=== PATIENT | male | born 1995 | race Hispanic/Latino ===

== ENCOUNTER → 2017-06-28 | Outpatient (CLI) | payer OTHER ==
--- NOTE | 2017-06-28 15:42 | Diagnostic Imaging Report ---
PROCEDURE:TESTICULAR ULTRASOUND COMPARISON:None. INDICATIONS:TESTICULAR PAIN TECHNIQUE: Gutierrez-scale and color Doppler images of the testicles and scrotal contents were obtained. Duplex imaging with spectral waveform analysis was performed of the testicular arteries and veins. FINDINGS: RIGHT SCROTUM: Testicle: 4.1 x 2.2 x 2.8 cm. Homogeneous echotexture without mass. Normal arterial and venous spectral Doppler waveforms. No increased vascularity. Epididymal head: 1.4 x 0.7 x 0.7 cm. Homogeneous echotexture without mass. No increased vascularity. Hydrocele: None Varicocele: None LEFT SCROTUM: Testicle: 4 x 2 x 2.8 cm. Homogeneous echotexture without mass. Normal arterial and venous spectral Doppler waveforms. No increased vascularity. Epididymal head: 1.3 x 1 x 0.7 cm. Homogeneous echotexture without mass. Anechoic 0.6 x 0.6 x 0.5 cm cyst or spermatocele. No increased vascularity. Hydrocele: None Varicocele: None No bulges in the inguinal regions to suggest inguinal hernia. CONCLUSION: 1. Subcentimeter left epididymal head cyst or spermatocele. 2. Otherwise, unremarkable scrotal ultrasound exam. Dictated by: Adam Butcher M.D. on 06/28/2017 at 15:43 Electronically approved by: Adam Butcher M.D. on 06/28/2017 at 15:43
--- NOTE | 2017-06-28 15:43 | Diagnostic Imaging Report ---
PROCEDURE:TESTICULAR DOPPLER ULTRASOUND COMPARISON:None. INDICATIONS:TESTICULAR PAIN TECHNIQUE: Gutierrez-scale and color doppler images of the testicles and scrotal contents were obtained. Duplex imaging with spectral waveform analysis was performed of the testicular arteries and veins. FINDINGS: See same day scrotal ultrasound for full report. CONCLUSION: See same day scrotal ultrasound for full report. Dictated by: Adam Butcher M.D. on 06/28/2017 at 15:43 Electronically approved by: Adam Butcher M.D. on 06/28/2017 at 15:43
== END ==
LOC: US 11:57
PROVIDERS: ATTEND Internal Medicine
DX: N50.9 Disorder of male genital organs, unspecified (principal)
CPT/HCPCS: 76870; 93976